=== PATIENT | female | born 1960 | race Caucasian/White ===

== ENCOUNTER 2019-03-05 13:14 | Emergency (ER) | payer OTHER ==
[2019-03-05] MEDS ORDERED: MEPERIDINE HCL 25 MG/0.5 ML ONE (14:22)
[2019-03-05] MEDS ORDERED: ONDANSETRON 4 MG/2 ML VIAL ONE (14:22)
[2019-03-05] MEDS ORDERED: NA CHLORIDE 0.9% 500 ML ONE (14:22)
[2019-03-05 14:46] LABS: Absolute Lymphocytes (CBC) 1.6 K/uL (0.7-4.9); Basophils % 0.3 % (0-1.3); Hematocrit 45.9 % (36.0-45.0); Lymphocytes % 11.4 % (15.3-44.8); MPV 9.7 fL (7.6-11.3); RBC Red Blood Cell Count 4.68 M/uL (3.86-4.86)
[2019-03-05 14:52] LABS: Albumin 3.7 g/dL (3.4-5.0); Bilirubin Direct 0.3 mg/dL (0-0.2); Potassium 3.7 mmol/L (3.5-5.1); Protein, Total 8.9 g/dL (6.4-8.2)
--- NOTE | 2019-03-05 15:34 | RAD REPORT ---
EXAM DESCRIPTION: CTAbdomen Pelvis W Contrast - 03/05/2019 3:22 pm CLINICAL HISTORY: Abdominal pain. ABD PAIN COMPARISON: No comparisons TECHNIQUE: Biphasic CT imaging of the abdomen and pelvis was performed with 100 ml non-ionic IV cont rast. All CT scans are performed using dose optimization technique as appropriate and may include automated exposure control or mA/KV adjustment according to patient size. FINDINGS: The lung bases are clear.Small hiatal hernia. The liver, spleen, pancreas, adrenal glands and kidneys are within normal limits. No bowel obstruction, free air, free fluid or abscess. Moderate fat containing umbilical hernia. The fat within the hernia appears slightly inflamed. Left lower quadrant sigmoid diverticulosis is presen t with 5-6 cm length of the moderately inflamed surrounding fat, compatible with acute diverticulitis . No abscess. The appendix is normal. No evidence of significant lymphadenopathy. No suspicious bony findings. IMPRESSION: Moderately severe sigmoid acute diverticulitis suspected left lower quadrant without abs cess. After appropriate treatment, recommend further evaluation with colonoscopy. Fat containing umbilical hernia with mildly inflamed fat.
--- NOTE | 2019-03-05 15:47 | EKG ---
Test Date: 2019-03-05 Test Time: 14:23:24 School Fundraising Director: GRACIE MEASUREMENT RESULTS: Intervals: Rate: 82 AK: 140 QRSD: 84 QT: 400 QTc: 467 [place]: P: 30 AK: 140 QRS: 31 T: 47 INTERPRETIVE STATEMENTS: Normal sinus rhythm Possible Left atrial enlargement Borderline ECG Compared to ECG 07/18/2015 11:32:23 No significant changes Electronically Signed On 03-05-19 15:46:44 CDT by Sharad Sams
[2019-03-05] MEDS ORDERED: CIPROFLOXACIN 400mg IV 400 MG/200 ML BAG IV ONE (16:01)
[2019-03-05] MEDS ORDERED: METRONIDAZOLE 500mg IVPB 500 MG/100 ML BAG IV ONE (16:02)
--- NOTE | 2019-03-05 18:06 | ER ---
Nurse's Notes [facility] Name: Daisy Bernard Age: 58 yrs Sex: Female : 1960 Arrival Date: 03/05/2019 Time: 13:16 Bed 20 Private MD: Diagnosis: Diverticulitis of large intestine without perforation or abscess without bleeding Presentation: 03/05 13:29 Presenting complaint: Patient states: abd pain for one week, nausea that started today. la1 Presenting complaint: Patient states: went to PCP yesterday, gave me ABX for UTI but told me it didn't show up in the test. Transition of care: patient was not received from another setting of care. Onset of symptoms was March 05, 2019. Risk Assessment: Do you want to hurt yourself or someone else? Patient reports no desire to harm self or others. Initial Sepsis Screen: Does the patient meet any 2 criteria? No. Patient's initial sepsis screen is negative. Does the patient have a suspected source of infection? No. Patient's initial sepsis screen is negative. Care prior to arrival: None. 13:29 Method Of Arrival: Ambulatory la1 13:29 Acuity: RAFAEL 3 la1 Triage Assessment: 13:30 General: Appears in no apparent distress. comfortable, obese, Behavior is cooperative, bp appropriate for age, anxious. Pain: Complains of pain in abdomen. EENT: No deficits noted. Neuro: No deficits noted. Cardiovascular: No deficits noted. Respiratory: No deficits noted. GI: Reports lower abdominal pain. : No signs and/or symptoms were reported regarding the genitourinary system. Derm: No signs and/or symptoms reported regarding the dermatologic system. Musculoskeletal: No deficits noted. Historical: - Allergies: 13:30 No Known Allergies; la1 - PMHx: 13:30 Hypertension; la1 - Immunization history:: Adult Immunizations up to date. - Social history:: Smoking status: Patient uses tobacco products, smokes one-half pack cigarettes per day. - Ebola Screening: : No symptoms or risks identified at this time. - Family history:: not pertinent. - Hospitalizations: : No recent hospitalization is reported. Screenin:49 Abuse screen: Denies threats or abuse. Denies injuries from another. Nutritional bp screening: No deficits noted. Tuberculosis screening: No symptoms or risk factors identified. Fall Risk None identified. Assessment: 13:30 General: SEE TRIAGE NOTE. bp 15:00 Reassessment: PT TO CT. bp 16:30 Reassessment: ABX INFUSING, VS STABLE ON MONITOR. bp 18:40 Reassessment: PT D/C HOME AMBULATORY, DX WITH DIVERTICULITIS. bp Vital Signs: 13:30 BP 141 / 92; Pulse 92; Resp 16; Temp 98.1; Pulse Ox 100% on R/A; Weight 104.33 kg; la1 Height 5 ft. 3 in. (160.02 cm); 15:00 BP 115 / 61; Pulse 84; Resp 16; Pulse Ox 100% ; bp 16:30 BP 143 / 73; Pulse 92; Resp 16; Pulse Ox 97% ; bp 17:30 BP 132 / 65; Pulse 92; Resp 16; Pulse Ox 92% ; bp 18:30 BP 134 / 65; Pulse 96; Resp 16; Temp 98.1; Pulse Ox 96% ; bp 13:30 Body Mass Index 40.74 (104.33 kg, 160.02 cm) la1 ED Course: 13:16 Patient arrived in ED. jg7 13:30 Triage completed. la1 13:30 Arm band placed on left wrist. la1 13:43 Cornelius Leahy MD is Attending Physician. rn 13:46 Buster Lopez, RN is Primary Nurse. bp 13:49 Patient has correct armband on for positive identification. Bed in low position. Call bp light in reach. Side rails up X2. 13:59 Radiology exam delayed due to lab results not completed at this time. (BUN/Creatinine). 2 14:17 Initial lab(s) drawn, by nd, sent to lab. Inserted saline lock: 20 gauge in left 5 antecubital area, using aseptic technique. 14:18 Lipase Sent. 5 14:[address] [facility] 14:18 Creatinine for Radiology Sent. [facility] 14:18 CBC with Diff Sent. [facility] 14:18 Basic Metabolic Panel Sent. 5 14:32 EKG done, by clinical dental technician. reviewed by Cornelius Leahy MD. 3 15:[address] nv 15:23 CT Abd/Pelvis - IV Contrast Only In Process Unspecified. EDMS 18:41 No provider procedures requiring assistance completed. IV discontinued, intact, bp bleeding controlled, No redness/swelling at site. Pressure dressing applied. Administered Medications: 14:10 Drug: NS 0.9% 500 ml Route: IV; Rate: bolus; Site: left antecubital; bp 16:00 Follow up: IV Status: Completed infusion; IV Intake: 500ml bp 14:10 Drug: Zofran 4 mg Route: IVP; Site: left antecubital; bp 15:11 Follow up: Response: Nausea is decreased bp 14:10 Drug: Demerol 25 mg Route: IVP; Site: left antecubital; bp 15:10 Follow up: Response: Pain is decreased bp 15:45 Drug: Flagyl 500 mg Volume: 100 ml; Route: IVPB; Rate: 200 ml/hr; Infused Over: 30 bp mins; Site: left antecubital; 16:45 Follow up: IV Status: Completed infusion; IV Intake: 100ml bp 16:20 Drug: Cipro 400 mg Volume: 200 ml; Route: IVPB; Infused Over: 60 mins; Site: left bp antecubital; 17:20 Follow up: IV Status: Completed infusion; IV Intake: 100ml bp Intake: 16:00 IV: 500ml; Total: 500ml. bp 16:45 IV: 100ml; Total: 600ml. bp 17:20 IV: 100ml; Total: 700ml. bp Outcome: 18:06 Discharge ordered by . rn 18:40 Discharged to home ambulatory. bp 18:40 Condition: stable 18:40 Discharge instructions given to patient, Instructed on discharge instructions, follow up and referral plans. medication usage, Demonstrated understanding of instructions, follow-up care, medications, Prescriptions given X 4. 18:42 Patient left the ED. bp Signatures: Dispatcher [employer] EDMS Cornelius Leahy MD MD rn Attema, Lee RN RN la1 Woody Finney Maria Rosalee Evans Buster Landon RN RN bp Montes, Shakira sm3 Octavia Rodriguez
--- NOTE | 2019-03-05 18:07 | EDPHYS ---
Physician Documentation [facility] Name: Daisy Bernard Age: 58 yrs Sex: Female : 1960 Arrival Date: 03/05/2019 Time: 13:16 Bed 20 Private MD: ED Physician Cornelius Leahy HPI: 03/05 14:27 This 58 yrs old Female presents to ER via Ambulatory with complaints of rn Abdominal Pain. 14:27 The patient presents with abdominal pain that is diffuse. Onset: The symptoms/episode rn began/occurred today. The symptoms do not radiate. Associated signs and symptoms: Pertinent positives: nausea, Pertinent negatives: anorexia, blood in stools, chest pain, constipation, diarrhea, dysuria, fever, shortness of breath, vaginal discharge, vomiting, vomiting blood. The symptoms are described as intermittent, sharp. Modifying factors: The symptoms are alleviated by nothing, the symptoms are aggravated by touching the area. Severity of pain: At its worst the pain was moderate in the emergency department the pain is unchanged. The patient has not experienced similar symptoms in the past. Historical: - Allergies: 13:30 No Known Allergies; la1 - PMHx: 13:30 Hypertension; la1 - Immunization history:: Adult Immunizations up to date. - Social history:: Smoking status: Patient uses tobacco products, smokes one-half pack cigarettes per day. - Ebola Screening: : No symptoms or risks identified at this time. - Family history:: not pertinent. - Hospitalizations: : No recent hospitalization is reported. ROS: 14:27 Constitutional: Negative for fever, chills, and weight loss, Eyes: Negative for injury, rn pain, redness, and discharge, Neck: Negative for injury, pain, and swelling, Cardiovascular: Negative for chest pain, palpitations, and edema, Respiratory: Negative for shortness of breath, cough, wheezing, and pleuritic chest pain, Abdomen/GI: + abd pain with nausea, no diarrhea, feels like "has to have diarrhea" Back: Negative for injury and pain, : Negative for injury, bleeding, discharge, and swelling, MS/Extremity: Negative for injury and deformity, Skin: Negative for injury, rash, and discoloration, Neuro: Negative for headache, weakness, numbness, tingling, and seizure. Exam: 14:27 Constitutional: This is a well developed, well nourished patient who is awake, alert, rn standing by counter, bending over, appears uncomfortable. Head/Face: Normocephalic, atraumatic. ENT: MMM Cardiovascular: Regular rate and rhythm. No pulse deficits. Respiratory: No increased work of breathing, no retractions or nasal flaring. Abdomen/GI: soft, mild tenderness all 4 quadrants MS/ Extremity: Pulses equal, no cyanosis. Neurovascular intact. Full, normal range of motion. Equal circumference. Neuro: Awake and alert, GCS 15, oriented to person, place, time, and situation. Cranial nerves II-XII grossly intact. Motor strength 5/5 in all extremities. Sensory grossly intact. Cerebellar exam normal. Normal gait. Vital Signs: 13:30 BP 141 / 92; Pulse 92; Resp 16; Temp 98.1; Pulse Ox 100% on R/A; Weight 104.33 kg; la1 Height 5 ft. 3 in. (160.02 cm); 15:00 BP 115 / 61; Pulse 84; Resp 16; Pulse Ox 100% ; bp 16:30 BP 143 / 73; Pulse 92; Resp 16; Pulse Ox 97% ; bp 17:30 BP 132 / 65; Pulse 92; Resp 16; Pulse Ox 92% ; bp 18:30 BP 134 / 65; Pulse 96; Resp 16; Temp 98.1; Pulse Ox 96% ; bp 13:30 Body Mass Index 40.74 (104.33 kg, 160.02 cm) la1 MDM: 13:43 Patient medically screened. rn 18:05 Differential diagnosis: appendicitis, bowel obstruction, diverticulitis, gastritis, rn non-specific abd pain, pancreatitis. Data reviewed: vital signs, nurses notes, lab test result(s), radiologic studies, CT scan, and as a result, I will discharge patient. Counseling: I had a detailed discussion with the patient and/or guardian regarding: the historical points, exam findings, and any diagnostic results supporting the discharge/admit diagnosis, lab results, radiology results, the need for outpatient follow up, to return to the emergency department if symptoms worsen or persist or if there are any questions or concerns that arise at home. Response to treatment: the patient's symptoms have markedly improved after treatment, and as a result, I will discharge patient. Special discussion: Based on the patient's Hx, exam, and Dx evaluation, there is no indication for emergent surgery or inpatient Tx. It is understood by the patient/guardian that if the Sx's persist or worsen they need to return immediately for re-evaluation. I discussed with the patient/guardian in detail that at this point there is no indication for admission to the hospital. It is understood, however, that if the symptoms persist or worsen the patient needs to return immediately for re-evaluation. 03/05 13:56 Order name: Basic Metabolic Panel; Complete Time: 15:37 rn 03/05 13:56 Order name: CBC with Diff; Complete Time: 15:37 rn 03/05 13:56 Order name: Creatinine for Radiology; Complete Time: 15:37 rn 03/05 13:56 Order name: Hepatic Function; Complete Time: 15:37 rn 03/05 13:56 Order name: Lipase; Complete Time: 15:37 rn 03/05 13:56 Order name: IV Saline Lock; Complete Time: 14:18 rn 03/05 13:56 Order name: CT Abd/Pelvis - IV Contrast Only; Complete Time: 15:37 rn 03/05 13:56 Order name: EKG; Complete Time: 13:57 rn 03/05 13:56 Order name: Labs collected and sent; Complete Time: 14:27 rn 03/05 13:56 Order name: EKG - Nurse/Tech; Complete Time: 14:27 rn 03/05 13:56 Order name: Urine Dipstick-Ancillary (obtain specimen); Complete Time: 15:22 rn Administered Medications: 14:10 Drug: NS 0.9% 500 ml Route: IV; Rate: bolus; Site: left antecubital; bp 16:00 Follow up: IV Status: Completed infusion; IV Intake: 500ml bp 14:10 Drug: Zofran 4 mg Route: IVP; Site: left antecubital; bp 15:11 Follow up: Response: Nausea is decreased bp 14:10 Drug: Demerol 25 mg Route: IVP; Site: left antecubital; bp 15:10 Follow up: Response: Pain is decreased bp 15:45 Drug: Flagyl 500 mg Volume: 100 ml; Route: IVPB; Rate: 200 ml/hr; Infused Over: 30 bp mins; Site: left antecubital; 16:45 Follow up: IV Status: Completed infusion; IV Intake: 100ml bp 16:20 Drug: Cipro 400 mg Volume: 200 ml; Route: IVPB; Infused Over: 60 mins; Site: left bp antecubital; 17:20 Follow up: IV Status: Completed infusion; IV Intake: 100ml bp Disposition: 03/05/19 18:06 Discharged to Home. Impression: Diverticulitis of large intestine without perforation or abscess without bleeding. - Condition is Stable. - Discharge Instructions: Diverticulitis. - Prescriptions for Zofran ODT 4 mg Oral tablet,disintegrating - place 1 tablet by TRANSLINGUAL route every 8 hours As needed; 220 tablet. Flagyl 500 mg Oral Tablet - take 1 tablet by ORAL route every 8 hours for 10 days; 30 tablet. Tylenol- Codeine #3 300-30 mg Oral Tablet - take 1 tablet by ORAL route every 6 hours As needed; 20 tablet. Cipro 500 mg Oral Tablet - take 1 tablet by ORAL route every 12 hours for 10 days; 20 tablet. - Medication Reconciliation Form, Thank You Letter, Antibiotic Education, Prescription Opioid Use form. - Follow up: Private Physician; When: As needed; Reason: Recheck today's complaints, Re-evaluation by your physician. - Problem is new. - Symptoms have improved. Signatures: Dispatcher [employer] EDMS Cornelius Leahy MD MD rn Attema, Lee, RN RN la1 Buster Lopez RN RN bp Corrections: (The following items were deleted from the chart) 18:42 18:06 03/05/2019 18:06 Discharged to Home. Impression: Diverticulitis of large bp intestine without perforation or abscess without bleeding. Condition is Stable. Forms are Medication Reconciliation Form, Thank You Letter, Antibiotic Education, Prescription Opioid Use. Follow up: Private Physician; When: As needed; Reason: Recheck today's complaints, Re-evaluation by your physician. Problem is new. Symptoms have improved. rn
[2019-03-05 19:14] VITALS: TEMP 98.1
[2019-03-05 19:17] VITALS: BP 143/73; O2SAT 97
== END 2019-03-05 18:42 | disposition home or self-care (01) ==
LOC: ER 13:14
DX: K57.32 Diverticulitis of large intestine without perforation or abscess without bleeding (principal); F17.210 Nicotine dependence, cigarettes, uncomplicated
CPT/HCPCS: 96365; 96361; 96368; 93005; 85025; 80048; 36415; 80076; 83690; 74177; 96375; 99284; Q9967; J2175; J7040; J2405; J0744

== ENCOUNTER 2020-06-23 13:08 | Emergency (ER) | payer OTHER ==
--- NOTE | 2020-06-23 18:00 | RAD REPORT ---
EXAM DESCRIPTION: Varun Chaney (2 Views)06/23/2020 5:52 pm CLINICAL HISTORY: Cough COMPARISON: None FINDINGS: The lungs appear clear of acute infiltrate. The heart is borderline enlarged IMPRESSION: No acute abnormalities displayed
[2020-06-23 18:47] LABS: Absolute Lymphocytes (CBC) 2.4 K/uL (0.7-4.9); Basophils % 0.1 % (0-1.3); Hematocrit 15.2 % (36.0-45.0); Lymphocytes % 47.2 % (15.3-44.8); MPV 8.6 fL (7.6-11.3); RBC Red Blood Cell Count 1.32 M/uL (3.86-4.86)
[2020-06-23 18:48] LABS: Protime INR 1.34
[2020-06-23 19:10] LABS: Bilirubin Direct 0.2 mg/dL (0-0.2); Bilirubin Total 0.6 mg/dL (0.2-1.0); Blood Morphology Comment NOTED (NOT SEEN); Macrocytosis 3+; Platelet Estimate DECR; White Blood Cell Scan OK (OK)
[2020-06-23 19:11] LABS: Albumin 3.3 g/dL (3.4-5.0); Magnesium 2.1 mg/dL (1.8-2.4); Protein, Total 8.1 g/dL (6.4-8.2); Troponin (Emerg Dept Use Only) 0.06 ng/mL (0.0-0.045)
[2020-06-23] MEDS ORDERED: NA CHLORIDE 0.9% 250 ML ONE ×2 (19:44→23:22)
[2020-06-23] MEDS ORDERED: NA CHLORIDE 0.9% 0 ML ONE (19:44)
[2020-06-23] MEDS ORDERED: PANTOPRAZOLE 40 MG INJ ONE (19:44)
[2020-06-23] MEDS ORDERED: NS KCL 20MEQ 1,000 ML IV ONE (19:45)
--- NOTE | 2020-06-23 21:09 | EDPHYS ---
Physician Documentation [facility] Name: Daisy Bernard Age: 59 yrs Sex: Female : 1960 Arrival Date: 06/23/2020 Time: 13:11 Bed 20 Private MD: ED Physician Sesar Trinidad HPI: 06/23 17:58 This 59 yrs old Female presents to ER via Wheelchair with complaints of kb Nausea, Leg Pain, Weakness. 17:58 The patient presents to the emergency department with nausea, that is mild, diarrhea, 1 kb times today. Onset: The symptoms/episode began/occurred gradually, 2 month(s) ago, and became worse 2 week(s) ago. Possible causes: She reports she had her teeth removed in April and has not felt the same since. She has received both COVID vaccines and the 2nd was Jun 02. Associated signs and symptoms: Pertinent positives: nausea, Epitaxies multiple episodes this week. , Pertinent negatives: abdominal pain. 19:36 Associated signs and symptoms: Pertinent positives: Also reports her BP usually runs in kb 170s. Today she said her BP is low at 115.. 21:06 The symptoms are aggravated by nothing. The symptoms are alleviated by nothing. kb Severity of symptoms: At their worst the symptoms were mild in the emergency department the symptoms are unchanged. The patient has not experienced similar symptoms in the past. The patient has not recently seen a physician. Pt reports dyspnea on exertion that started a few days ago as well. Historical: - Allergies: 13:51 No Known Allergies; iw - Home Meds: 13:51 lisinopril Oral twice a day [Active]; iw - PMHx: 13:51 Hypertension; iw - PSHx: 13:51 None; iw - Immunization history:: Adult Immunizations up to date. - Social history:: Smoking status: Patient reports the use of cigarette tobacco products, smokes two packs cigarettes per day. ROS: 18:01 Constitutional: Positive for malaise, poor PO intake. kb 18:01 Respiratory: Positive for shortness of breath, on exertion. Reports 1 1/2 ppd smoker. 18:01 Abdomen/GI: Positive for nausea, vomiting, diarrhea. 18:01 MS/extremity: Positive for BLE weakness and generalized pain. 21:10 Cardiovascular: Negative for chest pain, palpitations, and edema, : Negative for kb injury, bleeding, discharge, and swelling, MS/Extremity: Negative for injury and deformity, Skin: Negative for injury, rash, and discoloration, Neuro: Negative for headache, weakness, numbness, tingling, and seizure. Exam: 18:03 Musculoskeletal/extremity: Circulation is intact in all extremities. Pulses: noted to kb be 2+ in the right radial artery, right dorsalis pedis artery, left radial artery and left dorsalis pedis artery, Sensation intact. Weight bearing: able to fully bear weight, needs wheelchair to ambulate long distances. 20:59 Constitutional: This is a well developed, well nourished patient who is awake, alert, kb and in no acute distress. Head/Face: Normocephalic, atraumatic. Chest/axilla: Normal chest wall appearance and motion. Nontender with no deformity. No lesions are appreciated. Cardiovascular: Regular rate and rhythm with a normal S1 and S2. No gallops, murmurs, or rubs. Normal PMI, no JVD. No pulse deficits. Respiratory: Lungs have equal breath sounds bilaterally, clear to auscultation and percussion. No rales, rhonchi or wheezes noted. No increased work of breathing, no retractions or nasal flaring. Abdomen/GI: Soft, non-tender, with normal bowel sounds. No distension or tympany. No guarding or rebound. No evidence of tenderness throughout. Vital Signs: 13:49 Resp 16; Temp 98.7; Pulse Ox 100% on R/A; Weight 108.86 kg; Height 5 ft. 3 in. (160.02 iw cm); 18:30 BP 107 / 51; Pulse 78; Resp 16; Pulse Ox 100% on R/A; vg1 19:00 BP 122 / 62; Pulse 80; Resp 18; Pulse Ox 100% on R/A; vg1 21:00 BP 117 / 47; Pulse 85; Resp 14; Pulse Ox 98% on R/A; vg1 13:49 Body Mass Index 42.51 (108.86 kg, 160.02 cm) iw MDM: 17:29 Patient medically screened. kb 18:32 Data reviewed: vital signs, nurses notes, lab test result(s), EKG, radiologic studies, kb I have discussed the patient's presentation/case with the attending Emergency Department Physician;. Data interpreted: co director: rate is 78 beats/min, rhythm is normal sinus rhythm, Pulse oximetry: on room air is 100 %. Test interpretation: by ED physician or midlevel provider: ECG, plain radiologic studies. 20:11 ED course: Transfer initiated to [facility] due to lack of GI services at this facility. 20:55 ED course: Pt accepted for consult by Dr Langley and transfer by Dr Mason at [facility] after transfusion and HGB up to 7. 20:59 Counseling: I had a detailed discussion with the patient and/or guardian regarding: the historical points, exam findings, and any diagnostic results supporting the discharge/admit diagnosis, lab results, radiology results, the need to transfer to another facility. ED course: Dr Mason wants fluids and Protonix discontinued. . 21:04 Transition of care: After a detail discussion of the patient's case, care is kb transferred to Bhavesh Abdul MD. 06/23 17:57 Order name: Basic Metabolic Panel 06/23 17:57 Order name: CBC with Diff 06/23 17:57 Order name: LFT's 06/23 17:57 Order name: Magnesium 06/23 17:57 Order name: NT PRO-BNP; Complete Time: 09:06 06/23 17:57 Order name: PT-INR; Complete Time: 18:50 06/23 17:57 Order name: Troponin (emerg Dept Use Only); Complete Time: 09:06 06/23 17:58 Order name: Basic Metabolic Panel; Complete Time: 09:06 EDMS 06/23 17:58 Order name: CBC with Automated Diff; Complete Time: 19:11 EDMS 06/23 17:58 Order name: Liver (Hepatic) Function; Complete Time: 09:06 EDMS 06/23 17:58 Order name: Magnesium; Complete Time: 09:06 EDMS 06/23 18:59 Order name: Type And Screen 06/23 16:59 Order name: Chest Pa And Lat (2 Views) XRAY; Complete Time: 18:05 kb 06/23 19:10 Order name: CBC Smear Scan; Complete Time: 19:11 EDMS 06/23 19:20 Order name: Fibrinogen 06/23 19:21 Order name: Fibrinogen; Complete Time: 19:59 EDMS 06/23 20:41 Order name: Antibody Identification [facility] 06/23 20:45 Order name: ABO/RH no charge; Complete Time: 20:48 [facility] 06/23 21:27 Order name: Retic Count; Complete Time: 09:06 [facility] 06/23 21:27 Order name: LDH; Complete Time: 09:06 [facility] 06/23 21:30 Order name: Haptoglobin [facility] 06/23 22:28 Order name: Packed RBC Leukored [facility] 06/23 23:02 Order name: COVID-19/FLU A+B; Complete Time: 09:06 [facility] 06/23 17:57 Order name: EKG; Complete Time: 17:58 kb 06/23 17:57 Order name: Cardiac monitoring; Complete Time: 18:29 kb 06/23 17:57 Order name: EKG - Nurse/Tech; Complete Time: 18:29 kb 06/23 17:57 Order name: IV Saline Lock; Complete Time: 18:29 kb 06/23 17:57 Order name: Labs collected and sent; Complete Time: 18:29 kb 06/23 17:57 Order name: O2 Per Protocol; Complete Time: 17:59 kb 06/23 17:57 Order name: O2 Sat Monitoring; Complete Time: 17:59 kb Administered Medications: Discontinued: ProTONIX 8 mg/hr IV at 25 ml/hr continuous; (Standard dilution is 80 mg in 250 mL NS) Discontinued: NS 0.9% with KCl 20 mEq/L 1000 ml IV at 125 ml/hr continuous 19:30 Not Given (Duplicate Order): NS 0.9% with KCl 40 mEq/L 1000 ml IV at calculated rate kb continuous 20:04 Drug: NS 0.9% with KCl 20 mEq/L 1000 ml Route: IV; Rate: 125 ml/hr; Site: left vg1 antecubital; 21:06 Follow up: IV Status: Order to discontinue infusion vg1 20:05 Drug: ProTONIX 80 mg Route: IVP; Site: left antecubital; vg1 21:07 Follow up: Response: No adverse reaction vg1 20:05 Drug: ProTONIX 8 mg/hr Route: IV; Rate: 25 ml/hr; Site: left antecubital; vg1 21:06 Follow up: IV Status: Order to discontinue infusion vg1 21:06 Drug: Potassium Chloride 40 mEq Route: PO; vg1 23:38 Follow up: Response: No adverse reaction vg1 Disposition: 06/23/20 21:[address] [facility]. Diagnosis are Anemia, unspecified, Thrombocytopenia, unspecified. - Reason for transfer: Higher level of care. - Accepting physician is Isabella. - Condition is Stable. - Problem is new. - Symptoms are unchanged. Addendum: 06/26/2020 05:59 Co-signature as Attending Physician, Sesar Trinidad MD I agree with the assessment and k dr plan of care. Signatures: Dispatcher [employer] EDMS Pia Cabrera, PRODUCT MANAGEMENT MANAGER-C PRODUCT MANAGEMENT MANAGER-Sesar Garay MD MD [facility] Bharati Mulligan, RN RN Adriana Ryan, YOSEF RN Rosalee Rhodes RN RN vg1 Corrections: (The following items were deleted from the chart) 06/23 19:39 17:58 The patient presents to the emergency department with nausea, that is mild, diarrhea, 1 times today, : 17:58 Possible causes: She reports she had her teeth removed in April and has not kb felt the same since. She has received both COVID vaccines and the 2nd was Jun 02 21: 18:03 Constitutional: The patient appears alert, awake, [facility] : 18:03 Cardiovascular: Pulses: Pulses are 2+ in right radial artery, right dorsalis kb pedis artery, left radial artery and left dorsalis pedis artery. Heart sounds: murmur, Edema: 1+ edema to level of left ankle, left foot, left toes, right ankle, right foot and right toes, 21: 18:03 Respiratory: the patient does not display signs of respiratory distress, Respirations: normal, Breath sounds: are clear throughout, 21: 18:15 Cardiovascular: Heart sounds: [facility] 21:05 20:55 ED course: Pt accepted for consult by Dr Langley and transfer by Dr Mason at [facility]. . 21: 17:58 Onset: The symptoms/episode began/occurred gradually, 2 week(s) ago, [facility] : 17:58 Associated signs and symptoms: [facility] : 17:58 Associated signs and symptoms: Pertinent positives: Epitaxies multiple episodes kb this week. , kb 22:18 16:59 Influenza Screen (A \T\ B)+BA.LAB.BRZ ordered. EDMS EDMS 22:18 16:59 CORONAVIRUS+MR.LAB.BRZ ordered. EDMS EDMS 23:37 21:09 06/23/2020 21:[address] [facility]. bb Diagnosis is Anemia, unspecified; Thrombocytopenia, unspecified. Reason for transfer: Higher level of care. Accepting physician is Changela. Condition is Stable. Problem is new. Symptoms are unchanged. kb
--- NOTE | 2020-06-23 21:09 | ER ---
Nurse's Notes [facility] Name: Daisy Bernard Age: 59 yrs Sex: Female : 1960 Arrival Date: 06/23/2020 Time: 13:11 Bed 20 Private MD: Diagnosis: Anemia, unspecified;Thrombocytopenia, unspecified Presentation: 06/23 13:49 Chief complaint: Patient states: just don't feel good, no energy, ran out of breath, iw legs hurt, symptoms started about 2 weeks ago. Coronavirus screen: Ebola Screen: Patient negative for fever greater than or equal to 101.5 degrees Fahrenheit, and additional compatible Ebola Virus Disease symptoms Patient denies exposure to infectious person. Patient denies travel to an Ebola-affected area in the 21 days before illness onset. No symptoms or risks identified at this time. Initial Sepsis Screen: Does the patient meet any 2 criteria? No. Patient's initial sepsis screen is negative. Does the patient have a suspected source of infection? No. Patient's initial sepsis screen is negative. Risk Assessment: Do you want to hurt yourself or someone else? Patient reports no desire to harm self or others. Onset of symptoms was June 09, 2020. 13:49 Method Of Arrival: Wheelchair iw 13:49 Acuity: RAFAEL 3 iw Historical: - Allergies: 13:51 No Known Allergies; iw - Home Meds: 13:51 lisinopril Oral twice a day [Active]; iw - PMHx: 13:51 Hypertension; iw - PSHx: 13:51 None; iw - Immunization history:: Adult Immunizations up to date. - Social history:: Smoking status: Patient reports the use of cigarette tobacco products, smokes two packs cigarettes per day. Screenin:31 Abuse screen: Denies threats or abuse. Nutritional screening: No deficits noted. vg1 Tuberculosis screening: No symptoms or risk factors identified. Fall Risk No fall in past 12 months (0 pts). No secondary diagnosis (0 pts). IV access (20 points). Ambulatory Aid- None/Bed Rest/Nurse Assist (0 pts). Gait- Normal/Bed Rest/Wheelchair (0 pts) Mental Status- Oriented to own ability (0 pts). Total Mclaughlin Fall Scale indicates No Risk (0-24 pts). Assessment: 18:00 General: Appears in no apparent distress. comfortable, Behavior is calm, cooperative. vg1 Pain: Denies pain. Neuro: Level of Consciousness is awake, alert, obeys commands, Oriented to person, place, time, situation. Cardiovascular: Capillary refill < 3 seconds in bilateral toes Patient's skin is warm and dry. Respiratory: Airway is patent Respiratory effort is even, unlabored, Respiratory pattern is regular, symmetrical, Breath sounds are clear bilaterally. GI: Abdomen is flat. : No signs and/or symptoms were reported regarding the genitourinary system. EENT: No signs and/or symptoms were reported regarding the EENT system. Derm: Skin is pink, warm \T\ dry. Musculoskeletal: Circulation, motion, and sensation intact. 20:05 Reassessment: Patient appears in no apparent distress at this time. No changes from vg1 previously documented assessment. Patient and/or family updated on plan of care and expected duration. Pain level reassessed. Patient is alert, oriented x 3, equal unlabored respirations, skin warm/dry/pink. Patient is alert/active/playful, equal unlabored respirations, skin warm/dry/pink. 20:54 Reassessment: Received VO from Mandi TELLEZ to discontinue fluids. vg1 21:07 Reassessment: Patient appears in no apparent distress at this time. No changes from vg1 previously documented assessment. Patient is alert, oriented x 3, equal unlabored respirations, skin warm/dry/pink. Vital Signs: 13:49 Resp 16; Temp 98.7; Pulse Ox 100% on R/A; Weight 108.86 kg; Height 5 ft. 3 in. (160.02 iw cm); 18:30 BP 107 / 51; Pulse 78; Resp 16; Pulse Ox 100% on R/A; vg1 19:00 BP 122 / 62; Pulse 80; Resp 18; Pulse Ox 100% on R/A; vg1 21:00 BP 117 / 47; Pulse 85; Resp 14; Pulse Ox 98% on R/A; vg1 13:49 Body Mass Index 42.51 (108.86 kg, 160.02 cm) iw ED Course: 13:11 Patient arrived in ED. as 13:50 Triage completed. iw 13:52 Arm band placed on. iw 16:58 Pia Cabrera FNP-C is PHCP. kb 16:58 Sesar Trinidad MD is Attending Physician. kb 17:52 Chest Pa And Lat (2 Views) XRAY In Process Unspecified. EDMS 17:58 Rosalee Wesley, RN is Primary Nurse. vg1 18:25 Initial lab(s) drawn, by me, sent to lab. EKG done, by neon technician. Inserted saline lock: vg1 22 gauge in left antecubital area, using aseptic technique. Blood collected. 18:31 Patient has correct armband on for positive identification. Placed in gown. Bed in low vg1 position. Call light in reach. Side rails up X2. 20:05 BENJAMÍN Mandujano, initiated transfer at [facility] with Angeli Cade. tt3 20:41 Angeli Cade called back with Dr. Mason to speak with BENJAMÍN Mandujano, tt3 provider of patient. Stated they accepted but can't give admin approval until hemoglobin is 7 or above. Will update Angeli as labs come in. 22:10 COVID swab sent to lab. vg1 22:27 Angeli Cade gave admin approval. Dr. Mason is the accepting physician and accepted tt3 at 21:25. Facesheet faxed to per Angeli's request. Nurse to call report to . The pt is going to [facility] [address], [address] - *COVID PENDING*. 22:59 No provider procedures requiring assistance completed. Patient transferred, IV remains vg1 in place. Administered Medications: Discontinued: ProTONIX 8 mg/hr IV at 25 ml/hr continuous; (Standard dilution is 80 mg in 250 mL NS) Discontinued: NS 0.9% with KCl 20 mEq/L 1000 ml IV at 125 ml/hr continuous 19:30 Not Given (Duplicate Order): NS 0.9% with KCl 40 mEq/L 1000 ml IV at calculated rate kb continuous 20:04 Drug: NS 0.9% with KCl 20 mEq/L 1000 ml Route: IV; Rate: 125 ml/hr; Site: left vg1 antecubital; 21:06 Follow up: IV Status: Order to discontinue infusion vg1 20:05 Drug: ProTONIX 80 mg Route: IVP; Site: left antecubital; vg1 21:07 Follow up: Response: No adverse reaction vg1 20:05 Drug: ProTONIX 8 mg/hr Route: IV; Rate: 25 ml/hr; Site: left antecubital; vg1 21:06 Follow up: IV Status: Order to discontinue infusion vg1 21:06 Drug: Potassium Chloride 40 mEq Route: PO; vg1 23:38 Follow up: Response: No adverse reaction vg1 Outcome: 21:09 ER care complete, transfer ordered by MD. felix 22:59 Transferred by ground EMS to [facility]. vg1 22:59 Condition: stable 22:59 Instructed on the need for transfer. 23:37 Patient left the ED. bb Signatures: Dispatcher [employer] EDMS Pia Cabrera FNP-C FNP-Ckb Martinez, Amelia as Ballard, Brenda RN RN bb Adriana Huff RN RN iw Garcia, Victoria, RN RN vg1 Eduardo Lema tt3 Corrections: (The following items were deleted from the chart) 16:56 13:49 Resp 16bpm; Pulse Ox 100% RA; Temp 98.7F; 108.86 kg; Height 5 ft. 3 in.; BMI: iw 42.5; iw 20:06 17:30 BP 107 / 51; Pulse 78bpm; Resp 16bpm; Pulse Ox 100% RA; vg1 vg1 21:10 20:41 Angeli Cade called back with 2 physicians to speak with BENJAMÍN Mandujano, tt3 provider of patient. Stated they accepted but can't give admin approval until hemoglobin is 7 or above. Will update Angeli as labs come in. tt3
[2020-06-23] MEDS ORDERED: POTASSIUM CL SA 10 MEQ TAB PO ONE (21:16)
[2020-06-23 21:47] LABS: Potassium 2.7 mmol/L (3.5-5.1)
[2020-06-23 22:04] LABS: RBC Red Blood Cell Count 1.18 M/uL (3.86-4.86)
[2020-06-23 23:02] LABS: SARS-COV-2 RT PCR NEGATIVE (NEGATIVE)
[2020-06-23 23:48] VITALS: TEMP 98.7
[2020-06-23 23:52] VITALS: BP 117/47; O2SAT 98
== END 2020-06-23 23:37 | disposition short-term general hospital (02) ==
LOC: ER 13:08
DX: D64.9 Anemia, unspecified (principal); D69.6 Thrombocytopenia, unspecified; I10 Essential (primary) hypertension; Z20.822 Contact with and (suspected) exposure to COVID-19
CPT/HCPCS: 96365; 85025; 80048; 36415; 86900; 85384; 83735; 86850; 83615; 85610; 85044; 86870; 86901; 80076; 84484; 83010; 86922 ×2; 83880; 0240U; 71046; 99285; C9113; P9016; J7050 ×2; J3480; 36430; J7030